=== PATIENT | male | born 1935 | race Caucasian/White ===

== ENCOUNTER → 2018-11-20 10:22 | Outpatient (CLI) | payer MEDICARE, SELFPAY ==
--- NOTE | 2018-11-27 16:38 | PM.PFT.1 ---
Pulmonary Function Test Referral & Results Date Patient Seen: 11/20/18 Requesting provider: Abhijeet Mejia Indication: R06.02 Results: The spirometry demonstrates an FVC of 3.32 L which is 92% of predicted. The FEV1 was measured at 1.84 L which is 73% of predicted. The FEV1/FVC ratio was 55 which is 70% of predicted. Following the administration of bronchodilator there was no appreciable change. Lung volumes show an SVC of 3.03 L which is 74% of predicted. The diffusing capacity was measured at 16.91 which is 57% of predicted. The maximum voluntary ventilation was reduced Interpretation: This study demonstrates mild obstructive lung disease based on reduction in FEV1. There is no evidence of benefit following bronchodilator There is also mild reduction in lung volumes suggesting mild restrictive lung disease There is a moderate reduction in diffusing capacity suggesting disease at the capillary alveolar level as well Clinical correlation suggested
== END ==
PROVIDERS: PCP Student in an Organized Health Care Education/Training Program; Visit Provider Student in an Organized Health Care Education/Training Program
DX: R06.02 Shortness of breath (principal)
CPT/HCPCS: 94060; 94726; 94729

== ENCOUNTER 2021-05-08 13:40 | Emergency (ER) | payer MEDICARE, SELFPAY ==
[2021-05-08] VITALS (33 sets, daily range): BP systolic 127–210; BP diastolic 63–113; PULSE 46–112; RESP 9–27; TEMP 35.1–36.2; O2SAT 93–100
[2021-05-08] MEDS: propofoL 1,000 MG/100 ML VIAL 2.34 MG IV (13:40)
--- NOTE | 2021-05-08 13:47 | DI.CT.S_ITS ---
PROCEDURE: CT HEAD/BRAIN WO CON INDICATIONS: altered mental status, found in car in parking lot. TECHNIQUE: Noncontrast 4.5 mm thick angled axial sections acquired from the foramen magnum to the vertex, with coronal and sagittal reformats. For radiation dose reduction, the following was used: automated exposure control, adjustment of mA and/or kV according to patient size. COMPARISON: [facility], CT, CT CERVICAL SPINE WO CON, 05/08/2021, 14:07. FINDINGS: Image quality: Excellent. CSF spaces: Basal cisterns are patent. No extra-axial fluid collections. The ventricles enlarged with hyperdense material. Brain: There is 9 mm left to right midline shift. Basal cisterns are narrowed with beginning appearance of tonsillar herniation. There is asymmetric increased density along the course of the left middle cerebral artery. There is cerebral volume loss for age, with resultant ventricular and sulcal prominence. There are periventricular and deep white matter chronic small vessel ischemic changes. There is intracranial internal carotid artery atherosclerosis. Skull and face: Calvarium and visualized facial bones appear intact, without suspicious lesions. Sinuses: Visualized sinuses and mastoids are clear. IMPRESSION: 1. Extensive ventricular hemorrhage with midline shift as above. There is narrowing of the basal cisterns as well as what appears to be very early appearance of tonsillar herniation. 2. Asymmetric density along the course of the left middle cerebral artery. Areas subarachnoid hemorrhage/aneurysm rupture in this region cannot be excluded. The above findings were discussed with Dr. Josette Noel on 05/08/2021 at 2:51 p.m. Dictated by: Jeannette Song M.D. on 05/08/2021 at 14:51 Approved by: Jeannette Song M.D. on 05/08/2021 at 14:57
--- NOTE | 2021-05-08 13:47 | DI.RAD.S_ITS ---
PROCEDURE: XR CHEST 1V INDICATIONS: intubated. tube placement TECHNIQUE: One view of the chest was acquired. COMPARISON: None. FINDINGS: Surgical changes and devices: Endotracheal tube terminates in the cervical esophagus. Advancement is recommended by approximately 4 cm. Enteric tube terminates below the diaphragm outside the field of view. Lungs and pleura: Lungs are clear. No pleural effusions or pneumothorax. Mediastinum: Mediastinal contours appear normal. Heart size is normal. Bones and chest wall: No suspicious bony lesions. Overlying soft tissues appear unremarkable. IMPRESSION: Recommended advancement of endotracheal tube which terminates in the cervical esophagus. Dictated by: Severo Felix M.D. on 05/08/2021 at 15:31 Approved by: Severo Felix M.D. on 05/08/2021 at 15:32
--- NOTE | 2021-05-08 13:47 | DI.CT.S_ITS ---
PROCEDURE: CT CERVICAL SPINE WO CON INDICATIONS: altered mental status, found in car in parking lot. TECHNIQUE: Noncontrast 3 mm thick sections acquired from the skull base to the T4 level. Sagittal and coronal reformats were then constructed. For radiation dose reduction, the following was used: automated exposure control, adjustment of mA and/or kV according to patient size. COMPARISON: None. FINDINGS: Image quality: Excellent. Bones: No fractures or dislocations. Visualized superior ribs are intact. Partially visualized 4th ventricular hemorrhage is noted. Soft tissues: Prevertebral soft tissues are normal in thickness. No paravertebral hematomas. No apical pneumothoraces. IMPRESSION: 1. No visualized fracture. 2. Partially visualized ventricular hemorrhage. Please see CT brain 05/08/2021 report for further details. Dictated by: Jeannette Song M.D. on 05/08/2021 at 14:57 Approved by: Jeannette Song M.D. on 05/08/2021 at 14:59
--- NOTE | 2021-05-08 13:52 | ED.AMS ---
HPI - Altered Mental Status General Chief Complaint: Cardiac Arrest/CPR Stated Complaint: unresponsive Time Seen by Provider: 05/08/21 13:46 Source: patient Mode of arrival: Ambulatory Limitations: no limitations History of Present Illness HPI narrative: This is an 85-year-old male who comes to the emergency department found unresponsive in his vehicle at [facility]. Per EMS patient was parked in his vehicle, bystanders noted that he was unresponsive and called 911. There does not appear to be any obvious external trauma from his situation and he was found in. Patient does have a prescription for Eliquis in his bag he appears to be in atrial fibrillation although rate controlled. I do not have any other past medical history available. His code status is unknown and we have attempted to reach his Fabiana Jung who at [phone] and have left a voicemail but have not heard back. Patient was intubated in the field he received ketamine and succinylcholine as well as a dose of Narcan without any change. Prior to intubation or medications GCS 10 per EMS. Related Data Home Medications Medication Instructions Recorded Confirmed amlodipine 5 mg tablet (Norvasc) 2.5 mg PO QDAY #0 08/14/16 05/08/21 aspirin 81 mg tablet,delayed 81 mg PO QDAY #0 08/14/16 release triamterene 37.5 1 tab PO QDAY #0 08/14/16 mg-hydrochlorothiazide 25 mg tablet levothyroxine 25 mcg tablet 37.5 mcg PO DAILY 05/08/21 05/08/21 losartan 50 mg tablet 50 mg PO DAILY 05/08/21 05/08/21 rivaroxaban 20 mg tablet (Xarelto) 20 mg PO DAILY 05/08/21 05/08/21 rosuvastatin 5 mg tablet 5 mg PO DAILY 05/08/21 05/08/21 Allergies Allergy/AdvReac Type Severity Reaction Status Date / Time No Known Allergies Allergy Uncoded 12/03/17 13:10 Review of Systems Review of Systems ROS Unobtainable: Unobtainable due to mental status/LOC Exam Narrative Exam Narrative: GEN: Patient is intubated and unresponsive upon arrival. HEAD: No evidence of trauma, no raccoon/Arias sign. NECK: Nontender, painless range of motion, trachea midline. EYES: Pupils are equal, pinpoint bilaterally nonreactive. ENT: External inspection normal, trachea is midline, TM's are normal no hemotypanum, Nares are clear, no septal hematoma, no dental or oral injury, airway is normal and with normal occlusion, No bony tenderness RESP: Chest is nontender and has symmetric movement, no ecchymosis, breath sounds are normal no crackles, wheezes or rales CVS: Heart sounds are normal, no murmur noted, No JVD. ABG/GI: Nontender, soft, normal bowel sounds, no distention, no organomegaly, pelvic rock is negative NEURO: GCS is 3, p PSYCH: Normal mood and affect SKIN: Intact, warm and dry, no crepitus and without decubitus BACK: No CVA tenderness, no vertebral tenderness, no step-off's, no crepitus EXT: Atraumatic, no deformity. Patient is areflexic on exam. He does have a gag. Initial Vital Signs Initial Vital Signs: Vital Signs Pulse Rate 95 H 05/08/21 13:45 Respiratory Rate 18 05/08/21 13:45 Scores GCS Deon coma scale eye opening: None Deon coma scale verbal response: None Deon coma scale motor response: None [place] coma scale total score: 3 Course Orders Ordered: ED Orders 05/08/21 13:45 COVID19 - ADMIT (TECHNICAL SPECIALIST swab/PCR) Stat COVID19 -Nasal swab/Pre-Proc Stat 05/08/21 13:46 Urinalysis and Microscopic Stat Urine Drug Screen, Rapid Stat EKG-12 Lead Stat 05/08/21 13:47 CT cervical spine wo con Stat CT head/brain wo con Stat XR chest 1V Stat 05/08/21 13:53 Acetaminophen Stat Complete Blood Count AUTO DIFF Stat Comprehensive Metabolic Panel Stat Ethanol (ETOH) Stat Lactate (Lactic Acid) Stat NT-proBNP (BNP-Adult 18+) Stat Partial Thromboplastin Time Stat Prolactin Stat Prothrombin Time INR Stat Salicylate Stat Thyroid Stimulating Hormone Stat Troponin & CK Cardiac Panel Stat 05/08/21 14:29 Arterial Blood Gas Stat 05/08/21 14:49 Blood Culture Stat Discontinued Medications Sodium Chloride (Normal Saline 0.9%) 1,000 mls @ 150 mls/hr IV CONT RASHAAD Last Infusion: 05/08/21 15:52 Dose: 0 mls/hr Documented by: Admin: 05/08/21 14:29 Dose: 150 mls/hr Documented by: LORNA Nicardipine HCl 25 mg/ Sodium (Chloride) 250 mls @ 50 mls/hr IV TITRATE RASHAAD; Protocol Last Titration: 05/08/21 15:52 Dose: 0 mg/hr, 0 mls/hr Documented by: Titration: 05/08/21 15:28 Dose: 10 mg/hr, 100 mls/hr Documented by: Titration: 05/08/21 15:24 Dose: 15 mg/hr, 150 mls/hr Documented by: Titration: 05/08/21 15:04 Dose: 10 mg/hr, 100 mls/hr Documented by: Titration: 05/08/21 14:56 Dose: 10 mg/hr, 100 mls/hr Documented by: Titration: 05/08/21 14:49 Dose: 7.5 mg/hr, 75 mls/hr Documented by: Admin: 05/08/21 14:25 Dose: 5 mg/hr, 50 mls/hr Documented by: LORNA Propofol (Propofol) 1,000 mg in 100 mls @ 2.34 mls/hr IV TITRATE RASHAAD; Protocol Last Titration: 05/08/21 15:53 Dose: 0 mcg/kg/min, 0 mls/hr Documented by: Titration: 05/08/21 15:13 Dose: 10 mcg/kg/min, 4.68 mls/hr Documented by: Titration: 05/08/21 15:07 Dose: 0 mcg/kg/min, 0 mls/hr Documented by: Titration: 05/08/21 14:15 Dose: 20 mcg/kg/min, 9.36 mls/hr Documented by: Titration: 05/08/21 14:00 Dose: 10 mcg/kg/min, 4.68 mls/hr Documented by: Admin: 05/08/21 13:40 Dose: 5 mcg/kg/min, 2.34 mls/hr Documented by: LORNA Mannitol 12.5 gm/ (Miscellaneous) 50 mls @ 156 mls/hr IV NOW ONE Stop: 05/08/21 15:01 Last Admin: 05/08/21 15:13 Dose: Not Given Documented by: LORNA Prothrombin Complex Concent ( Human) 2,000 unit/Miscellaneous 80 mls @ 561.6 mls/hr IV NOW ONE; Protocol Stop: 05/08/21 14:50 Last Infusion: 05/08/21 15:14 Dose: 0 unit/kg/min, 0 mls/hr Documented by: Admin: 05/08/21 15:05 Dose: 3 unit/kg/min, 561.6 mls/hr Documented by: LORNA Mannitol 12.5 gm/ (Miscellaneous) 50 mls @ 156 mls/hr IV NOW ONE Stop: 05/08/21 15:00 Last Admin: 05/08/21 14:48 Dose: Not Given Documented by: LORNA Sodium Chloride (Hypertonic Saline 3%) 500 mls @ 20 mls/hr IV CONT RASHAAD Last Infusion: 05/08/21 15:53 Dose: 0 mls/hr Documented by: Admin: 05/08/21 15:31 Dose: 240 mls/hr Documented by: LORNA Labetalol HCl (Labetalol 20 Mg/4 Ml Syringe) 10 mg IV NOW ONE Stop: 05/08/21 13:54 Last Admin: 05/08/21 15:18 Dose: Not Given Documented by: LORNA Consultations Consultation #1: Dr. Fernandez at [facility] ED. discussed appears to be a atraumatic intracranial hemorrhage with significant bleed into ventricles. Patient is significantly hypertensive in working to improve his pressure within our card to pre drip. Patient we did discuss appears to be on Xarelto and we do have Kcentra available and this was given. We discussed mannitol but was deferred currently. Patient's neurologic exam prior to any additional sedation is not reassuring. And during his stay his heart rate has decreased. We have attempted to reach out to patient's family, there is a number for a Fabiana in the system and a voicemail was left at that number. I do not have any additional contact information at this time. Do not have a code status for this patient. Or any additional history besides the medications in his bag. Vital Signs Vital signs: Vital Signs - 8 hr 05/08/21 13:45 05/08/21 13:48 05/08/21 13:53 Temperature 97.2 F L Pulse Rate 95 H 112 H 80 Respiratory Rate 18 20 14 Blood Pressure 210/105 H Pulse Oximetry 100 99 05/08/21 13:54 05/08/21 13:55 05/08/21 14:00 Temperature Pulse Rate 77 78 78 Respiratory Rate 17 18 20 Blood Pressure 183/107 H 201/113 H 201/109 H Pulse Oximetry 99 99 99 05/08/21 14:04 05/08/21 14:05 05/08/21 14:08 Temperature Pulse Rate 77 76 76 Respiratory Rate 16 19 9 L Blood Pressure 190/108 H 182/105 H Pulse Oximetry 99 99 99 05/08/21 14:10 05/08/21 14:15 05/08/21 14:18 Temperature Pulse Rate 75 71 72 Respiratory Rate 25 H 24 17 Blood Pressure 174/105 H Pulse Oximetry 99 99 99 05/08/21 14:20 05/08/21 14:25 05/08/21 14:30 Temperature 96.4 F L 96.4 F L 96.3 F L Pulse Rate 72 63 60 Respiratory Rate 16 15 17 Blood Pressure 179/91 H 163/86 H Pulse Oximetry 99 99 99 05/08/21 14:31 05/08/21 14:35 05/08/21 14:38 Temperature 96.3 F L 96.3 F L 96.3 F L Pulse Rate 59 L 52 L 51 L Respiratory Rate 16 15 18 Blood Pressure 167/107 H 163/93 H Pulse Oximetry 99 98 96 05/08/21 14:40 05/08/21 14:45 05/08/21 14:50 Temperature 96.3 F L 96.1 F L 95.9 F L Pulse Rate 54 L 46 L 51 L Respiratory Rate 14 17 17 Blood Pressure 176/92 H 172/87 H 173/88 H Pulse Oximetry 95 94 93 05/08/21 14:55 05/08/21 15:00 05/08/21 15:05 Temperature 95.7 F L 95.7 F L 95.5 F L Pulse Rate 46 L 49 L 49 L Respiratory Rate 18 23 23 Blood Pressure 191/96 H 183/90 H 191/103 H Pulse Oximetry 94 94 94 05/08/21 15:09 05/08/21 15:10 05/08/21 15:11 Temperature 95.4 F L 95.4 F L 95.4 F L Pulse Rate 52 L 56 L 53 L Respiratory Rate 26 H 22 27 H Blood Pressure 158/98 H 174/86 H Pulse Oximetry 94 95 95 05/08/21 15:15 05/08/21 15:18 05/08/21 15:20 Temperature 95.4 F L 95.4 F L 95.4 F L Pulse Rate 50 L 53 L 53 L Respiratory Rate 26 H 23 26 H Blood Pressure 153/73 H 145/80 H 143/70 H Pulse Oximetry 95 96 95 05/08/21 15:25 05/08/21 15:30 05/08/21 15:35 Temperature 95.4 F L 95.4 F L 95.2 F L Pulse Rate 49 L 53 L Respiratory Rate 21 27 H Blood Pressure 127/71 127/63 Pulse Oximetry 96 97 MDM - Altered Mental Status Lab Data Result diagrams: 05/08/21 13:53 05/08/21 13:53 Labs: Lab Results 05/08/21 05/08/21 05/08/21 Range/Units 13:45 13:45 13:53 WBC 7.1 (4.5-11.0) X10^3/uL RBC 4.42 L (4.5-5.9) X10^6/uL Hgb 14.8 (13.5-17.5) g/dL Hct 42.6 (41-53) % MCV 96.5 (80-100) fL MCH 33.5 (26-34) PG MCHC 34.7 (30-36) % RDW 13.4 (11.6-14.8) % Plt Count 132 L (150-400) X10^3/uL Neut % (Auto) 63.7 (50-75) % Lymph % (Auto) 25.0 (25-40) % Bledsoe % (Auto) 7.8 (3-14) % Eos % (Auto) 2.6 (2-4) % Baso % (Auto) 0.9 (0-2) % Neut # (Auto) 4500 (8083-4444) /uL Lymph # (Auto) 1800 (7092-9654) /uL Bledsoe # (Auto) 600 (0-900) /uL Eos # (Auto) 200 (0-450) /uL Baso # (Auto) 100 (0-100) /uL PT (10.1-12.7) SECONDS INR (0.9-1.3) APTT (26.4-36.2) SECONDS ABG pH (7.35-7.45) ABG pCO2 (35-45) mmHg ABG pO2 (80-100) mmHg ABG HCO3 (22-26) mmol/L ABG Total CO2 (21-31) mmol/L ABG O2 Saturation (95-100) % ABG Base Excess (-2-2) mmol/L FiO2 Sodium (137-145) mmol/L Potassium (3.4-5.1) mmol/L Chloride (98-107) mmol/L Carbon Dioxide (22-32) mmol/L BUN (9-20) mg/dL Creatinine (0.66-1.25) mg/dL Estimated GFR (>60) mL/min BUN/Creatinine Ratio (6-22) Glucose (80-110) mg/dL Lactate (0.7-2.1) mmol/L Calcium (8.4-10.2) mg/dL Total Bilirubin (0.2-1.3) mg/dL AST (17-59) IU/L ALT (<50) IU/L Alkaline Phosphatase (38-126) U/L Total Creatine Kinase (55-170) U/L CK-MB (CK-2) (<2.37) ng/mL CK-MB (CK-2) Rel Index (1.5-5.0) % Troponin I (0.01-0.034) ng/mL NT-Pro-B Natriuret Pep (<450) pg/mL Total Protein (6.3-8.2) g/dL Albumin (3.5-5.0) g/dL Globulin (1.7-4.1) g/dL Albumin/Globulin Ratio (1.0-2.8) TSH (0.47-4.68) uIU/mL Prolactin (3.7-17.9) ng/mL Salicylates (<20) mg/dL Acetaminophen (10-30) ug/mL Ethyl Alcohol ( - 10) mg/dL SARS-CoV-2 (PCR) Negative Negative (Negative) 05/08/21 05/08/21 05/08/21 Range/Units 13:53 13:53 13:53 WBC (4.5-11.0) X10^3/uL RBC (4.5-5.9) X10^6/uL Hgb (13.5-17.5) g/dL Hct (41-53) % MCV (80-100) fL MCH (26-34) PG MCHC (30-36) % RDW (11.6-14.8) % Plt Count (150-400) X10^3/uL Neut % (Auto) (50-75) % Lymph % (Auto) (25-40) % Bledsoe % (Auto) (3-14) % Eos % (Auto) (2-4) % Baso % (Auto) (0-2) % Neut # (Auto) (0182-3583) /uL Lymph # (Auto) (9961-3417) /uL Bledsoe # (Auto) (0-900) /uL Eos # (Auto) (0-450) /uL Baso # (Auto) (0-100) /uL PT 16.6 H (10.1-12.7) SECONDS INR 1.5 H (0.9-1.3) APTT 36 (26.4-36.2) SECONDS ABG pH (7.35-7.45) ABG pCO2 (35-45) mmHg ABG pO2 (80-100) mmHg ABG HCO3 (22-26) mmol/L ABG Total CO2 (21-31) mmol/L ABG O2 Saturation (95-100) % ABG Base Excess (-2-2) mmol/L FiO2 Sodium 133 L (137-145) mmol/L Potassium 4.0 (3.4-5.1) mmol/L Chloride 102 (98-107) mmol/L Carbon Dioxide 22 (22-32) mmol/L BUN 18 (9-20) mg/dL Creatinine 0.94 (0.66-1.25) mg/dL Estimated GFR > 60.0 (>60) mL/min BUN/Creatinine Ratio 19.1 (6-22) Glucose 142 H (80-110) mg/dL Lactate 1.1 (0.7-2.1) mmol/L Calcium 9.0 (8.4-10.2) mg/dL Total Bilirubin 1.5 H (0.2-1.3) mg/dL AST 39 (17-59) IU/L ALT 25 (<50) IU/L Alkaline Phosphatase 97 (38-126) U/L Total Creatine Kinase 121 (55-170) U/L CK-MB (CK-2) 1.42 (<2.37) ng/mL CK-MB (CK-2) Rel Index 1.2 L (1.5-5.0) % Troponin I < 0.012 (0.01-0.034) ng/mL NT-Pro-B Natriuret Pep 1690 H (<450) pg/mL Total Protein 7.7 (6.3-8.2) g/dL Albumin 4.6 (3.5-5.0) g/dL Globulin 3.1 (1.7-4.1) g/dL Albumin/Globulin Ratio 1.5 (1.0-2.8) TSH (0.47-4.68) uIU/mL Prolactin 50.1 H (3.7-17.9) ng/mL Salicylates < 1.0 (<20) mg/dL Acetaminophen < 10 L (10-30) ug/mL Ethyl Alcohol < 10 ( - 10) mg/dL SARS-CoV-2 (PCR) (Negative) 05/08/21 05/08/21 Range/Units 13:53 14:29 WBC (4.5-11.0) X10^3/uL RBC (4.5-5.9) X10^6/uL Hgb (13.5-17.5) g/dL Hct (41-53) % MCV (80-100) fL MCH (26-34) PG MCHC (30-36) % RDW (11.6-14.8) % Plt Count (150-400) X10^3/uL Neut % (Auto) (50-75) % Lymph % (Auto) (25-40) % Bledsoe % (Auto) (3-14) % Eos % (Auto) (2-4) % Baso % (Auto) (0-2) % Neut # (Auto) (9954-2058) /uL Lymph # (Auto) (2165-7844) /uL Bledsoe # (Auto) (0-900) /uL Eos # (Auto) (0-450) /uL Baso # (Auto) (0-100) /uL PT (10.1-12.7) SECONDS INR (0.9-1.3) APTT (26.4-36.2) SECONDS ABG pH 7.40 (7.35-7.45) ABG pCO2 42.2 (35-45) mmHg ABG pO2 387 H* (80-100) mmHg ABG HCO3 26 (22-26) mmol/L ABG Total CO2 28 (21-31) mmol/L ABG O2 Saturation 100 (95-100) % ABG Base Excess 1.0 (-2-2) mmol/L FiO2 100 Sodium (137-145) mmol/L Potassium (3.4-5.1) mmol/L Chloride (98-107) mmol/L Carbon Dioxide (22-32) mmol/L BUN (9-20) mg/dL Creatinine (0.66-1.25) mg/dL Estimated GFR (>60) mL/min BUN/Creatinine Ratio (6-22) Glucose (80-110) mg/dL Lactate (0.7-2.1) mmol/L Calcium (8.4-10.2) mg/dL Total Bilirubin (0.2-1.3) mg/dL AST (17-59) IU/L ALT (<50) IU/L Alkaline Phosphatase (38-126) U/L Total Creatine Kinase (55-170) U/L CK-MB (CK-2) (<2.37) ng/mL CK-MB (CK-2) Rel Index (1.5-5.0) % Troponin I (0.01-0.034) ng/mL NT-Pro-B Natriuret Pep (<450) pg/mL Total Protein (6.3-8.2) g/dL Albumin (3.5-5.0) g/dL Globulin (1.7-4.1) g/dL Albumin/Globulin Ratio (1.0-2.8) TSH 4.53 (0.47-4.68) uIU/mL Prolactin (3.7-17.9) ng/mL Salicylates (<20) mg/dL Acetaminophen (10-30) ug/mL Ethyl Alcohol ( - 10) mg/dL SARS-CoV-2 (PCR) (Negative) Point of Care Testing Glucose POC [address] scan - head: My Impression: large bleed appears sah. Radiologist's Impression: [address] [place] [address] CT Scan Report Signed Patient: Adalberto Gonzalez MR#: [id number] : 1935 Acct:[id number] Age/Sex: 85 / M Date of Service: 05/08/21 Loc: ED Accession Number: [id number] ?? Procedure: CT head/brain wo con Ordering Provider: Josette Noel D.O. PROCEDURE:? CT HEAD/BRAIN WO CON ? INDICATIONS:? altered mental status, found in car in parking lot. ? TECHNIQUE:? Noncontrast 4.5 mm thick angled axial sections acquired from the foramen magnum to the vertex, with coronal and sagittal reformats.? For radiation dose reduction, the following was used:? automated exposure control, adjustment of mA and/or kV according to patient size.? ? COMPARISON:? [facility], CT, CT CERVICAL SPINE WO CON, 05/08/2021, 14:07. ? FINDINGS:? Image quality:? Excellent.? ? CSF spaces:? Basal cisterns are patent.? No extra-axial fluid collections.? The ventricles enlarged with hyperdense material. ? Brain:? There is 9 mm left to right midline shift.? Basal cisterns are narrowed with beginning appearance of tonsillar herniation.? There is asymmetric increased density along the course of the left middle cerebral artery.? ? There is cerebral volume loss for age, with resultant ventricular and sulcal prominence.? There are periventricular and deep white matter chronic small vessel ischemic changes.? There is intracranial internal carotid artery atherosclerosis.? ? Skull and face:? Calvarium and visualized facial bones appear intact, without suspicious lesions.? ? Sinuses:? Visualized sinuses and mastoids are clear.? ? IMPRESSION:? ? 1. Extensive ventricular hemorrhage with midline shift as above.? There is narrowing of the basal cisterns as well as what appears to be very early appearance of tonsillar herniation. ? 2. Asymmetric density along the course of the left middle cerebral artery.? Areas subarachnoid hemorrhage/aneurysm rupture in this region cannot be excluded. ? The above findings were discussed with Dr. Josette Noel on 05/08/2021 at 2:51 p.m. ? ? Dictated by: Jeannette Song M.D. on 05/08/2021 at 14:51 ? ? Approved by: Jeannette Song M.D. on 05/08/2021 at 14:57?? Chest x-ray: Radiologist's Impression: Adalberto Gonzalez??85??M??1935 ? Allergy/Adv: [No Known Allergies] Close Head CT (Signed) Leon Songley - 05/08/21 Chest X-Ray (Signed) Seveor Felix - 05/08/[address] (Signed) Jeannette Song - 05/08/21 Launch?[address] [address] XRay Report Signed Patient: Adalberto Gonzalez MR#: [id number] : 1935 Acct:[id number] Age/Sex: 85 / M Date of Service: 05/08/21 Loc: ED Accession Number: [id number] ?? Procedure: XR chest 1V Ordering Provider: Josette Noel D.O. PROCEDURE:? XR CHEST 1V ? INDICATIONS:? intubated. tube placement ? TECHNIQUE:? One view of the chest was acquired.? ? COMPARISON:? None. ? FINDINGS:? ? Surgical changes and devices:? Endotracheal tube terminates in the cervical esophagus.? Advancement is recommended by approximately 4 cm.? Enteric tube terminates below the diaphragm outside the field of view.? ? Lungs and pleura:? Lungs are clear.? No pleural effusions or pneumothorax.? ? Mediastinum:? Mediastinal contours appear normal.? Heart size is normal.? ? Bones and chest wall:? No suspicious bony lesions.? Overlying soft tissues appear unremarkable.? ? IMPRESSION:? Recommended advancement of endotracheal tube which terminates in the cervical esophagus.? ? ? Dictated by: Severo Felix M.D. on 05/08/2021 at 15:31 ? ? Approved by: Severo Felix M.D. on 05/08/2021 at 15:32?? CT - cervical spine: Radiologist's Impression: Launch?[address] [address] [address] Scan Report Signed Patient: Adalberto Gonzalez MR#: [id number] : 1935 Acct:[id number] Age/Sex: 85 / M Date of Service: 05/08/21 Loc: ED Accession Number: [id number] ?? Procedure: CT cervical spine wo con Ordering Provider: Josette Noel D.O. PROCEDURE:? CT CERVICAL SPINE WO CON ? INDICATIONS:? altered mental status, found in car in parking lot. ? TECHNIQUE:? Noncontrast 3 mm thick sections acquired from the skull base to the T4 level.? Sagittal and coronal reformats were then constructed.? For radiation dose reduction, the following was used:? automated exposure control, adjustment of mA and/or kV according to patient size.? ? COMPARISON:? None. ? FINDINGS:? Image quality:? Excellent.? ? Bones:? No fractures or dislocations.? Visualized superior ribs are intact.? Partially visualized 4th ventricular hemorrhage is noted. ? Soft tissues:? Prevertebral soft tissues are normal in thickness.? No paravertebral hematomas.? No apical pneumothoraces.? ? ? IMPRESSION:? ? 1. No visualized fracture. ? 2. Partially visualized ventricular hemorrhage.? Please see CT brain 05/08/2021 report for further details.? Dictated by: Jeannette Song M.D. on 05/08/2021 at 14:57 ? ? Approved by: Jeannette Song M.D. on 05/08/2021 at 14:59?? ECG Data Attestation: I personally reviewed and interpreted this ECG as follows: Prior ECG tracings: not available for review Interpretation: AFib, left axis deviation. Rate of 78 QRS of 110 and QTC of 458. MDM Narrative Medical decision making narrative: This is an 85-year-old male appears to have a large intracranial bleed. Patient is anticoagulated on Xarelto. Patient is hypertensive in the 200/100 range. Patient was started on nicardipine drip. Appropriate fall was continued for sedation although patient has gag he does not have other changes on his neuro exam. Pupils are pinpoint at this time. Patient's INR is 1.5. Kcentra was given. Patient case was discussed with Dr. Fernandez at [facility] ED who accepts for transfer. Plan continue Kcentra at this time. Holding mannitol after discussion. Images were pushed. Platelets are mildly low at 1:32 a.m.. Negative COVID PCR testing. Just prior to transfer was noted patient's pupils are unequal. He continues to be bradycardic decision was made to give 3% saline which we do have available here. Critical Care Time Critical Care Time Critical Care Time: Yes Total Critical Care Time: 45 Attestation: The high probability of a clinically significant, sudden or life threatening deterioration of the [neurologic, cardiac] system(s) required my full and direct attention, intervention and personal management. The aggregate critical care time was [45] minutes. This time is in addition to time spent performing reported procedures but includes the following: [x] Data Review and interpretation [x] Patient assessment and monitoring of vital signs x] Documentation [x] Medication orders and management Discharge Plan Departure Patient Disposition: [facility] Clinical Impression: Subarachnoid bleed Prescriptions: No Action amlodipine [Norvasc] 5 MG tablet 2.5 mg PO QDAY Qty: 0 RF: 0 triamterene-hydrochlorothiazid 37.5 MG/25 MG tablet 1 tab PO QDAY Qty: 0 RF: 0 aspirin 81 MG tablet,delayed release (DR/EC) 81 mg PO QDAY Qty: 0 RF: 0 losartan 50 mg tablet 50 mg PO DAILY RF: 0 levothyroxine 25 mcg tablet 37.5 mcg PO DAILY RF: 0 rosuvastatin 5 mg tablet 5 mg PO DAILY RF: 0 Xarelto 20 mg tablet 20 mg PO DAILY RF: 0 Referrals: Abhijeet Mejia MD [Primary Care Provider] -
[2021-05-08 14:01] LABS: Add Manual Diff / Slide Review NO; Basophils Absolute Auto 100 /uL (0-100); Basophils Percent Auto 0.9 % (0-2); Eosinophils Absolute Auto 200 /uL (0-450); Eosinophils Percent Auto 2.6 % (2-4); Hematocrit 42.6 % (41-53); Hemoglobin 14.8 g/dL (13.5-17.5); Lymphocytes Absolute Auto 1800 /uL (1100-4500); Mean Corpuscular HGB Conc 34.7 % (30-36); Mean Corpuscular Hemoglobin 33.5 PG (26-34); Mean Corpuscular Volume 96.5 fL (80-100); Monocytes Absolute Auto 600 /uL (0-900); Monocytes Percent Auto 7.8 % (3-14); Neutrophils Absolute Auto 4500 /uL (1500-7000); Neutrophils Percent Auto 63.7 % (50-75); Platelet Count 132 X10^3/uL (150-400); Red Blood Cell Count 4.42 X10^6/uL (4.5-5.9); Red Cell Distribution Width 13.4 % (11.6-14.8); White Blood Cell Count 7.1 X10^3/uL (4.5-11.0)
[2021-05-08 14:08] LABS: INR 1.5 (0.9-1.3); Prothrombin Time 16.6 SECONDS (10.1-12.7)
[2021-05-08 14:11] LABS: PTT Partial Thromboplastin Tim 36 SECONDS (26.4-36.2)
[2021-05-08 14:19] LABS: Acetaminophen < 10 ug/mL (10-30); Alanine Aminotransferase 25 IU/L (<50); Albumin 4.6 g/dL (3.5-5.0); Albumin Globulin Ratio 1.5 (1.0-2.8); Alkaline Phosphatase 97 U/L (38-126); Aspartate Aminotransferase 39 IU/L (17-59); BUN Creatinine Ratio 19.1 (6-22); Bilirubin Total 1.5 mg/dL (0.2-1.3); Blood Urea Nitrogen 18 mg/dL (9-20); Carbon Dioxide 22 mmol/L (22-32); Chloride 102 mmol/L (98-107); Creatine Kinase 121 U/L (55-170); Estimated Glomerular Filt Rate > 60.0 mL/min (>60); Ethanol (ETOH) < 10 mg/dL; Globulin 3.1 g/dL (1.7-4.1); Glucose 142 mg/dL (80-110); HEMOLYSIS 61 (0-50); Lactate (Lactic Acid) 1.1 mmol/L (0.7-2.1); Salicylate < 1.0 mg/dL (<20); Sodium 133 mmol/L (137-145); Total Protein 7.7 g/dL (6.3-8.2)
[2021-05-08 14:22] LABS: COVID19 -Nasal RAPID Negative (Negative)
[2021-05-08] MEDS: NICARDIPINE 25 MG in SODIUM CHLORIDE 0.9% 240 ML 50 ML IV (14:25)
[2021-05-08 14:28] LABS: NT-proBNP (BNP-Adult 18+) 1690 pg/mL (<450); Troponin I < 0.012 ng/mL (0.01-0.034)
[2021-05-08] MEDS: SODIUM CHLORIDE 0.9% 1,000 ML 150 ML IV (14:29)
[2021-05-08] MEDS: propofoL 1,000 MG/100 ML VIAL 4.5 MG IV (14:31)
[2021-05-08 14:33] LABS: CKMB % Relative Index 1.2 % (1.5-5.0); Creatine Kinase MB 1.42 ng/mL (<2.37); Prolactin 50.1 ng/mL (3.7-17.9)
[2021-05-08 14:48] LABS: PCO2 ABG 42.2 mmHg (35-45)
[2021-05-08 14:49] LABS: HCO3 ABG 26 mmol/L (22-26); PO2 ABG 387 mmHg (80-100); TCO2 ABG 28 mmol/L (21-31)
[2021-05-08 14:50] LABS: Fractionated Inspired Oxygen 100; Oxygen Saturation ABG 100 % (95-100)
[2021-05-08 14:51] LABS: Thyroid Stimulating Hormone 4.53 uIU/mL (0.47-4.68)
[2021-05-08 14:55] LABS: COVID19 - ADMIT (NP swab/PCR) Negative (Negative)
[2021-05-08] MEDS: PROTHROMBIN CPLX(PCC)4FACT 2,000 UNIT in ISOOSMOTIC VEHICLE 0 ML 561.6 ML IV (15:05)
[2021-05-08] MEDS: SODIUM CHLORIDE 3 % 500 ML 240 ML IV (15:31)
--- NOTE | 2021-05-08 16:29 | PC.NURSE ---
Running note: Pt arrived intubated from field after being found unresponsive in his car outside of [facility] in [place]. Pt had no response to Narcan, was intubated w/ ketamine and succinacholine and was found to be very hypertensive. Upon arrival to the ED, pt was unresponsive to stimulation (GCS 3T), pupils 2-3 mm and poorly reactive was placed on monitor, found to be in Atrial Fibrilation, rate controlled @70s. Profoundly hypertensive. Started on propofol which was titrated for effect on blood pressure during CT scans. Pt return to room [address] and remained 3T, pupils 2mm and poorly reactive, started in Nicardipine which was titrated to effect. Hypothermia addressed w/ warm blankets. Remained easy to ventilate. [facility] arrived and car was transferred. Of note, Fabiana (listed in chart as next of kin) has according to caregiver I reached at pt's home. I called the ED @ [facility] and they had a Ayana Gonzalez listed (dtr) at [phone]. I left a message at this number asking her to call back.
--- NOTE | 2021-05-08 18:19 | PC.NURSE ---
Contacted dtr and gave [facility] information.
== END 2021-05-08 15:53 | disposition short-term general hospital (02) ==
PROVIDERS: Emergency Provider Emergency Medicine; PCP Student in an Organized Health Care Education/Training Program
DX: I60.8 Other nontraumatic subarachnoid hemorrhage (principal); R40.2421 Glasgow coma scale score 9-12, in the field [EMT or ambulance]; I48.91 Unspecified atrial fibrillation; Z79.01 Long term (current) use of anticoagulants; Z20.822 Contact with and (suspected) exposure to COVID-19
CPT/HCPCS: 36415; 36600; 70450; 71045; 72125; 80053; 80320; 80329; 82550; 82553; 82805; 82962; 83605; 83880; 84146; 84443; 84484; 85025; 85610; 85730; 87040; 87635; 93005; 93010; 94002; 96365; 96375; 99285; 99291; 99292; C9803; G0480; J2704; J7168